=== PATIENT | female | born 1990 | race Caucasian/White ===

== ENCOUNTER 2017-02-18 11:16 | Emergency (ER) | payer SELFPAY ==
[~2017-02-18] VITALS: Ht 157.5 cm; Wt 63.5 kg
[2017-02-18 11:56] VITALS: BP 107/58
== END 2017-02-18 12:48 | disposition home or self-care (01) ==
LOC: EMS 11:20
DX: Z48.00 Encounter for change or removal of nonsurgical wound dressing (principal)
CPT/HCPCS: 99281